=== PATIENT | male | born 1980 | race Caucasian/White ===

== ENCOUNTER 2018-03-26 19:06 | Emergency (ER) | payer BC ==
[~2018-03-26] VITALS: Ht 170.2 cm; Wt 70.3 kg
[2018-03-26 19:26] VITALS: Ht 170.2 cm; Wt 70.3 kg
[2018-03-26 21:08] VITALS: BP 129/93
== END 2018-03-26 21:08 | disposition home or self-care (01) ==
LOC: ED 19:06
DX: S61.210A Laceration without foreign body of right index finger without damage to nail, initial encounter (principal); Y28.0XXA Contact with sharp glass, undetermined intent, initial encounter; Y93.89 Activity, other specified; Y92.89 Other specified places as the place of occurrence of the external cause; Y99.8 Other external cause status